=== PATIENT | female | born 1970 | race Caucasian/White ===

== ENCOUNTER 2021-09-17 07:19 | Day surgery (SDC) | payer OTHER ==
[~2021-09-17] VITALS: Ht 175.3 cm; Wt 115.9 kg
[~2021-09-17 07:19] MED LIST: DOTTI1 EACH TD; FLUOXETINE HCL20 MG PO; HYDROCHLOROTHIA25 MG PO; MAGNESIUM CITR296 ML PO; MOTRIN IB200 MG PO; ONDANSETRON ODT8 MG PO; PERCOCET 5-3251 EACH PO; VITAMIN D5000 UNIT PO; ZYRTEC10 MG PO
--- NOTE | 2021-09-17 09:59 | NUR ---
09/17/21 0959 Kaylee Ramirez 0907 PT ARRIVED IN PACU AWAKE WITH NO C/O'S. ABD SOFT AND PASSING FLATUS. 0940 SITTING UP IN BED TALKING TO STAFF. 0945 DR AT BEDSIDE. ALL QUESTIONS ANSWERED. 0955 DC INSTRUCTIONS GIVEN.
--- NOTE | 2021-09-19 15:30 | PATH ---
[facility] [address] [place], [place] [address] Signed SPECIMEN(S): A DESCENDING/LEFT COLON POLYP SPECIMEN SOURCE: A. DESCENDING/LEFT COLON POLYP CLINICAL HISTORY: Screening colonoscopy. Postop: Sigmoid polyp. FINAL PATHOLOGIC DIAGNOSIS: Colon, descending/left, polyp, polypectomy: - Fragments of colonic mucosa with no histopathologic abnormality. - Negative for dysplasia or malignancy. COMMENT: Multiple additional deeper levels were examined. NAL:caw:C MICROSCOPIC EXAMINATION: Histologic sections of all submitted blocks are examined by light microscopy. These findings, together with the gross examination, support the pathologic diagnosis. GROSS DESCRIPTION: The specimen, labeled "AN, #1," and designated on the requisition "descending/left colon," is received in formalin and consists of two strauss soft tissue fragments that measure 0.2 cm in greatest dimension. The specimen is entirely submitted in cassette (A1). AT (under the direct supervision of a pathologist) The Gross Description was prepared using a voice recognition system. The report was reviewed for accuracy; however, sound-alike word errors, addition and/or deletions may occur. If there is any question about this report, please contact Client Services. PERFORMING LABORATORY: The technical component was performed by [facility], [address] [place] [id number] (Nursery Worker: Sania Simon MD; CLIA# [id number]). [facility] [address] [address] (CLIA# [id number]). Diagnostician: Lucille Liriano MD PATIENT NAME: JOSY HER PATHOLOGY DATE OF : 74 REPORT #: [id number] PHYSICIAN: PASHA PATHOLOGY PCP: ARTHUR FELDMAN PA-C REPORT IS CONFIDENTIAL AND NOT TO BE RELEASED WITHOUT AUTHORIZATION [address] [address] Signed Pathologist Electronically Signed 09/19/2021 Copies: ~ PATIENT NAME: JOSY HER PATHOLOGY DATE OF : 74 REPORT #: [id number] PHYSICIAN: PASHA PATHOLOGY PCP: ARTHUR FELDMAN PA-C REPORT IS CONFIDENTIAL AND NOT TO BE RELEASED WITHOUT AUTHORIZATION
--- NOTE | 2021-09-23 21:03 | OR ---
[facility] [address] [place], [place] [address] Signed DATE OF OPERATION: 09/17/2021 SURGEON: Magi Ricardo MD PREOPERATIVE DIAGNOSES: 1. Colon screening. 2. Family history of colon cancer (father age 58). Grandfather x2 (paternal and maternal). POSTOPERATIVE DIAGNOSES: 1. Small polyp, left colon. 2. Sigmoid diverticulosis. PROCEDURE: Total colonoscopy to cecum with cold morcellation polypectomy x1. ANESTHESIA: Intravenous sedation, fentanyl 100 mcg and Versed 7 mg. INDICATION: This 51-year-old white woman is a patient of LESLY Olivares. She has a family history of colon cancer in her father and a paternal and maternal grandfather who also had colon cancer. She has no symptoms of bleeding, diarrhea or constipation currently. She is admitted at this time to undergo colonoscopy. She understands the risks of bleeding, infection, and perforation. FINDINGS: The prep was good. Complete colonoscopy was undertaken to the cecum without question. There was a small polyp of the left colon which was excised completely with cold morcellation technique. There were few scattered diverticula of the sigmoid and left colon, but there were no other findings of concern. PROCEDURE: The patient was brought to the surgical endoscopy suite placed in lateral decubitus position, given intravenous sedation to the point of slurred speech and nystagmus. Full cardiopulmonary monitoring was maintained. Digital rectal examination was found to be normal. An Olympus video colonoscope was passed in the rectum and manipulated throughout the colon ultimately intubating the cecum itself. The ileocecal valve and appendiceal Electronically Signed By: MAGI RICARDO MD 09/23/213 PATIENT NAME: JOSY HER OPERATIVE REPORT DATE OF : 74 REPORT #: [id number] PHYSICIAN: MAGI RICARDO MD PCP: MADY CUTLER PA-C REPORT IS CONFIDENTIAL AND NOT TO BE RELEASED WITHOUT AUTHORIZATION [facility] [address] [place], [place] [address] Signed orifice were normal. The scope was carefully withdrawn from that point and examination throughout showed no sign of abnormality into the proximal descending colon where a small polyp was noted. Narrow band imaging confirmed this likely to be an adenoma. The polyp was excised with cold morcellation technique. Further withdrawal showed some diverticula of the sigmoid colon. Retroflexed view of the rectum was normal. Scope was removed and the patient was taken to the recovery room in good condition. CONCLUDING DIAGNOSIS: Polyps x1 and diverticulosis. PLAN: Recommend repeat colonoscopy in 5 years, sooner if symptoms should occur. Recommend high-fiber diet. MD DAVID Clark/JENNIFER /[id number] cc: Mady Cutler PA-C Copies: MADY CUTLER PA-C ~ Electronically Signed By: MAGI RICARDO MD 09/23/21 2103 PATIENT NAME: JOSY HER OPERATIVE REPORT DATE OF : 74 REPORT #: [id number] PHYSICIAN: MAGI RICARDO MD PCP: MADY CUTLER PA-C REPORT IS CONFIDENTIAL AND NOT TO BE RELEASED WITHOUT AUTHORIZATION
== END 2021-09-17 10:03 | disposition home or self-care (01) ==
LOC: DS 07:19 → OPS 07:19 → DS 13:00 → OPS 13:00
PROVIDERS: ATTEND Surgery
PROC: 0DBM8ZX Excision of Descending Colon, Via Natural or Artificial Opening Endoscopic, Diagnostic (ICD-10-PCS; principal; 2021-09-17 08:15)
DX: Z12.11 Encounter for screening for malignant neoplasm of colon (principal); I10 Essential (primary) hypertension; K57.30 Diverticulosis of large intestine without perforation or abscess without bleeding; E66.01 Morbid (severe) obesity due to excess calories; Z80.0 Family history of malignant neoplasm of digestive organs; Z90.711 Acquired absence of uterus with remaining cervical stump; Z20.822 Contact with and (suspected) exposure to COVID-19
CPT/HCPCS: 84703; 99153; G0500; J2250; J3010